=== PATIENT | female | born 2000 | race Caucasian/White ===

== ENCOUNTER 2020-03-20 20:59 | Emergency (ER) | payer OTHER ==
[2020-03-20 21:09] VITALS: BP 119/90
--- NOTE | 2020-03-20 21:23 | EDM.PDOC ---
ED HPI GENERAL MEDICAL PROBLEM - General Chief Complaint: Abdominal Pain Stated Complaint: LEFT SIDE AND LOWER ABDOMINAL PAIN Time Seen by Provider: 03/20/20 21:16 Source of Information: Reports: Patient History Limitations: Reports: No Limitations - History of Present Illness INITIAL COMMENTS - FREE TEXT/NARRATIVE: TRIAGE NOTE -- Pt has had mid-upper abdominal pain for 2 weeks, not worse today , just going on for too long per pt. [ End ] As above. No specific complaint of abdominal pain at this moment. No fever. No nausea no vomiting. No change in bowel habits. No constipation. No straining at the stool. No diarrhea. No salient risk factors related to this but patient does have an apparent psychotic illness recorded in chart of schizophrenia and per patient is "bipolar." Denies hearing voices. Says she is "sleeping like a baby." Abdominal Pain Score (Numeric/FACES): 6 - Related Data Allergies Allergy/AdvReac Type Severity Reaction Status Date / Time peanut Allergy Anaphylactic Verified 03/20/20 21:10 Shock Home Meds: Home Meds Paliperidone [Invega] 6 mg PO DAILY 03/20/20 [History] Past Medical History - Past Health History Medical/Surgical History: Denies Medical/Surgical History HEENT History: Reports: Hard of Hearing, Impaired Vision Cardiovascular History: Reports: Heart Murmur PRODUCTION WELDER History: Reports: , Other (See Below) Other PRODUCTION WELDER History: co pain to left pelvis and down left leg Psychiatric History: Reports: ADHD, Antisocial Behaviors, Emotional Problems, Mood Swings, Psych Hospitalization(s), Psychosis, Schizophrenia Social & Family History - Family History Family Medical History: Noncontributory - Tobacco Use Smoking Status *Q: Former Smoker Used Tobacco, but Quit: Yes Month/Year Tobacco Last Used: 02/18/20 - Caffeine Use Caffeine Use: Reports: Coffee, Soda - Recreational Drug Use Recreational Drug Use: No - Living Situation & Occupation Living situation: Reports: Other Occupation: Student ED ROS GENERAL - Review of Systems Review Of Systems: Comprehensive ROS is negative, except as noted in HPI. ED EXAM, GI/ABD - Physical Exam Exam: See Below Exam Limited By: No Limitations General Appearance: Alert, WD/WN, No Apparent Distress Eyes: Bilateral: EOMI Ears: Normal External Exam Nose: Normal Inspection Throat/Mouth: Normal Inspection Head: Atraumatic, Normocephalic Neck: Normal Inspection, Supple, Non-Tender Respiratory/Chest: No Respiratory Distress, Lungs Clear, Normal Breath Sounds Cardiovascular: Regular Rate, Rhythm, No Edema GI/Abdominal Exam: Normal Bowel Sounds, Soft, Non-Tender, No Distention, No Mass , Other (Abdomen is completely benign on exam.) Extremities: Normal Inspection Neurological: Alert, Oriented, No Motor/Sensory Deficits Psychiatric: Other (Odd affect but no suicidal ideation or any other kamron findings at this exam.) Skin Exam: Warm, Dry Course - Vital Signs Last Recorded V/S: Last Vital Signs Temp 36.9 C 03/20/20 21:09 Pulse Resp 20 03/20/20 21:09 BP 119/90 03/20/20 21:09 Pulse Ox 97 03/20/20 21:09 - Orders/Labs/Meds Labs: Laboratory Tests 03/20/20 03/20/20 Range/Units 21:15 21:15 Urine Color Yellow (Yellow) Urine Appearance Clear (Clear) Urine pH 7.0 (5.0-8.0) Ur Specific [place] > or = 1.030 (1.005-1.030) Urine Protein Negative (Negative) Urine Glucose (UA) Negative (Negative) Urine Ketones Negative (Negative) Urine Occult Blood Negative (Negative) Urine Nitrite Negative (Negative) Urine Bilirubin Negative (Negative) Urine Urobilinogen 0.2 (0.2-1.0) Ur Leukocyte Esterase Negative (Negative) Urine HCG, Qual Negative (NEGATIVE) - Re-Assessments/Exams Free Text/Narrative Re-Assessment/Exam: 03/20/20 22:15 On the basis of the patient's history presentation and exam there is not appear to be an acute medical issue requiring further evaluation. test is negative. Urine does not suggest an infectious or other process producing symptoms. Exam is completely benign. Departure - Departure Time of Disposition: 22:16 Disposition: Home, Self-Care 01 Condition: Good Clinical Impression: Abdominal discomfort, generalized, Normal abdominal exam - Discharge Information *PRESCRIPTION DRUG MONITORING PROGRAM REVIEWED*: Not Applicable *COPY OF PRESCRIPTION DRUG MONITORING REPORT IN PATIENT TREASURE: Not Applicable Referrals: PCP,None [Primary Care Provider] - Forms: ED Department Discharge Additional Instructions: You have been seen for a complaint of chronic abdominal discomfort. Your exam is normal. There is no need to do further evaluation in the emergency department but you do need to be followed up by a physician in the community. You have been given referral information. It is recommended that you see someone within the next few days. Return to the ER for any increasing abdominal pain or kamron abdominal pain, nausea or vomiting diarrhea fever or any other symptom of acute medical illness. Sepsis Event Note - Evaluation Sepsis Screening Result: No Definite Risk - Focused Exam Vital Signs: Vital Signs Temp Resp BP Pulse Ox 03/20/20 21:09 36.9 C 20 119/90 97 Date Exam was Performed: 03/20/20 Time Exam was Performed: 22:11
== END 2020-03-20 22:30 | disposition home or self-care (01) ==
LOC: JD.ED 20:59
DX: R10.84 Generalized abdominal pain (principal); Z91.010 Allergy to peanuts; Z87.891 Personal history of nicotine dependence
CPT/HCPCS: 81003; 81025; 99282; 99284